=== PATIENT | female | born 1980 | race Caucasian/White ===

== ENCOUNTER 2021-12-08 07:41 | Day surgery (SDC) | payer BC, SELFPAY ==
[2021-12-08] VITALS (13 sets, daily range): BP systolic 101–126; BP diastolic 66–91; PULSE 66–89; RESP 14–18; TEMP 36.4–37.3; O2SAT 95–100; BMI 44.0
[2021-12-08 08:22] LABS: Ur HCG Qualitative* Negative (Negative)
[2021-12-08] MEDS: SODIUM CHLORIDE 0.9 % (FLUSH) 10 ML SYRINGE IVF (08:38)
[2021-12-08] MEDS: LACTATED RINGERS 1000 ML 1,000 ML 100 ML IV (08:38)
--- NOTE | 2021-12-08 09:16 | W.PM.GYNPROC ---
Procedure Note Date Seen: 12/08/21 Procedure Details: PREOPERATIVE DIAGNOSES: 1. Undesired fertility. POSTOPERATIVE DIAGNOSES: 1. Undesired fertility. PROCEDURE: 1. Laparoscopic bilateral salpingectomies. 2. Right ovarian cyst aspiration. 3. Lysis of adhesions. SURGEON: Rochelle. SCHOOL AIDE: John Mack. ANESTHESIA: General endotracheal. COMPLICATIONS: None. ESTIMATED BLOOD LOSS: 20 mL. FINDINGS: On speculum examination, the cervix was noted to be normal in appearance. Mirena IUD strings were noted to be present at the external cervical os. Laparoscopic findings included a normal-appearing uterus, normal fallopian tubes bilaterally, normal left ovary with a small simple follicle cyst, right ovary also containing a small follicle cyst, cyst and right ovary adherent to the right ovarian fossa. DESCRIPTION OF PROCEDURE: After obtaining informed consent, the patient was taken to the operating room where general anesthesia was obtained without difficulty. She was prepared and draped in the normal sterile fashion in the low dorsal lithotomy position. A Wong catheter was inserted into the bladder and left to gravity drainage. A medium Graves open-sided speculum was introduced into the vagina. The cervix was visualized and grasped along its anterior lip with a single-tooth tenaculum. A [employer] uterine manipulator was placed without difficulty. The tenaculum and speculum were removed. I then changed gloves and my attention was turned to the abdomen. The inferior aspect of the umbilical fold was injected with 0.25% Marcaine plain. A 5 mm vertical incision was then made within the umbilical fold using a scalpel. A direct entry technique was used to place a 5 mm laparoscopic port with CO2 gas set to a 5 mmHg. The trocar was removed leaving the sleeve in place. The CO2 gas flow was turned to high flow to achieve pneumoperitoneum. The 5 mm laparoscope was used then to carefully inspect the abdomen and pelvis with findings noted above. Pictures were taken for documentation purposes. The patient was placed in Trendelenburg positioning. Two additional 5 mm port were placed in the right and left lower quadrants under direct visualization after first anesthetizing the skin and fascia with 0.25% Marcaine plain. The uterus was elevated using the uterine manipulator. The bowels were gently pushed from the pelvis cephalad. The left ovary was elevated with a graspers. It was dissected from its ovarian, broad ligament, and cornual attachments using the LigaSure bipolar electrocautery device. The tube was removed through the right lower quadrant port. The right ovary was elevated with a graspers. In the process, there was some bleeding noted from adhesions that were tethering the ovary to the right pelvic sidewall in the right ovarian fossa. The tube was completely dissected from its ovarian, broad ligament, and cornual attachments using the LigaSure device. The ovary was further bluntly dissected from the right ovarian fossa and in the process the cyst was ruptured in aspirated of clear fluid. The ovary was opened and the cyst base cauterized using the [employer] [facility] electrocautery. The abdomen and pelvis were then copiously irrigated and clots removed. Armani was placed in the right ovarian fossa in over the right ovary for additional hemostasis. Excellent hemostasis was visualized. All instruments were then removed under direct visualization. Pneumoperitoneum was allowed to escape. The skin at all 3 port sites was closed in a subcuticular fashion with interrupted sutures of 4-0 Vicryl. Exofin glue was then placed over the incisions. The uterine manipulator and Wong catheter were removed. The cervix was visualized using a speculum and the IUD strings were still noted to be present at the external cervical os. The patient tolerated the procedure well. Sponge, lap, and needle counts were correct x2. The patient was taken to the recovery room awake and in stable condition. She received 3 g of IV Ancef preoperatively and 30 mg IV Toradol at the conclusion of the procedure. A 22 modifier is needed for this case due to additional time required operating because of technical difficulties given patient's body habitus/obesity.
--- NOTE | 2021-12-08 11:39 | PM.PROC ---
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 Byrd with the patient's surgery. I aided in dissection, visualization, and obtaining hemostasis. Please see Dr. Byrd note for complete details. This procedure took 45 minutes of extra time due to lysis of adhesions and difficulty with visualization due to the patient's body habitus. Surgeon: Rupinder Child MD
--- NOTE | 2021-12-08 11:49 | W.ANESCHARGE ---
Anesthesia Charges Start Date/Time Anesthesia Start Date: 12/08/21 Anesthesia Start Time: 09:29 Stop Date/Time Anesthesia Stop Date: 12/08/21 Anesthesia Stop Time: 11:50 Summary Emergency: No
[2021-12-08] MEDS: MEPERIDINE 25 MG/ML INJ 12.5 MG IVP (12:03)
--- NOTE | 2021-12-08 12:20 | W.ANESCHARGE ---
Anesthesia Charges Start Date/Time Anesthesia Start Date: 12/08/21 Anesthesia Start Time: 09:29 Stop Date/Time Anesthesia Stop Date: 12/08/21 Anesthesia Stop Time: 11:50 Summary Emergency: No
[2021-12-08] MEDS: HYDROCODONE/ACETAMIN 7.5-325 TABLET 1 TAB PO (12:35)
== END 2021-12-08 13:36 | disposition home or self-care (01) ==
PROVIDERS: PCP Surgery; Visit Provider Obstetrics & Gynecology
PROC: (CPT 58661; principal; 2021-12-08 09:00)
DX: Z30.2 Encounter for sterilization (principal); N83.291 Other ovarian cyst, right side
CPT/HCPCS: 58661; 49322; 00840; 00851; 81025; 88302; A9270; J0330; J1170; J2175; J2250; J2370; J2704; J3010; J3490; J7120

== ENCOUNTER 2022-05-03 07:50 | Outpatient (CLI) | payer BC, SELFPAY ==
[2022-05-03 09:10] LABS: SARS Antigen* positive (Negative)
== END 2022-05-03 07:51 | disposition home or self-care (01) ==
LOC: OP CLINIC 07:54
PROVIDERS: PCP Surgery; Visit Provider Internal Medicine Gastroenterology
DX: Z20.822 Contact with and (suspected) exposure to COVID-19 (principal)
CPT/HCPCS: 87426